=== PATIENT | female | born 1980 | race Hispanic/Latino ===

== ENCOUNTER 2024-10-17 19:17 | Emergency (ER) | payer MEDICAID ==
[~2024-10-17] VITALS: Ht 167.6 cm; Wt 113.4 kg
[2024-10-17 20:02] VITALS: BP 118/98; RESP 18; TEMP 97.7; O2SAT 95
--- NOTE | 2024-10-17 20:13 | ERN ---
ED Note History of Present Illness Stated Complaint: CP, CONGESTION Chief Complaint: Cough Time Seen by MD: 19:20 Dictation: Patient is a 44-year-old female coming in with cough congestion and wheezing she has had for 2-3 days. She states she has had clear runny nose, no fever no chills. States she has a history of asthma and used her albuterol inhaler1 hour ago. She also states she started taken azithromycin after a doing a tele health visit on Saturday and was prescribed azithromycin without a diagnosis. Allergies: Coded Allergies: Penicillins (Unverified Allergy, Unknown, 10/17/24) Past Medical History Past Medical History: Asthma Surgical History: None History: Not Applicable RN Note Reviewed/Agreed w/PFSH: Yes Review of System Dictation CONSTITUTIONAL: Negative except for HPI HEAD/FACE: Negative except for HPI EENT: Negative except for HPI RESPIRATORY: Negative except for HPI wheezing/cough GASTROINTESTINAL/ABDOMINAL: Negative except for HPI GENITOURINARY: Negative except for HPI MUSCULOSKELETAL: Negative except for HPI INTEGUMENTARY: Negative except for HPI NEUROLOGICAL/PSYCH: Negative except for HPI HEMATOLOGIC/LYMPHATIC: Negative except for HPI All Systems Negative, Except as noted above. 13 point review of systems assessed and all negative except for above. Initial Vital Sign VS Vital Signs Date Time Temp Pulse Resp B/P (MAP) Pulse Ox O2 Delivery O2 Flow Rate FiO2 10/17/24 19:20 97.7 90 20 132/86 98 Room Air 10/17/24 20:02 0 21 Physical Exam Dictation Vital Signs reviewed General Appearance: Alert, oriented x 3, mild acute distress, well developed, nourished. Obese Head and Face: non-traumatic. Eyes: PERRL, pink conjunctivas, eyelid no trauma, anterior chamber with arcus senilis. Ears: Pinnas intact and no signs of trauma or erythema ear canals clear and no discharge TM no erythema Nose: No discharge, no bleeding. Oropharynx: Mouth normal, tongue pink, pharynx clear,no erythema, tonsils no exudates, no abscesses noted, mucous membrane moist Neck: Supple, non-tender, no thyromegaly, no masses, no JVD, no bruits Breast:Deferred Chest:No tenderness, no crepitus, no paradoxical movement, no retractions Lungs:Clear, well-ventilated, symmetric, bilateral expiratory wheezes to lower lobes, no tachypnea no retractions Heart: Regular rate, regular rhythm, no murmur, no gallops Vascular: no peripheral edema, Abdomen: Soft, positive bowel sounds, nondistended, no guarding, nontender, no rebound, no masses no hepatomegaly, no splenomegaly, no Hill's sign, no hernias. Rectal: Deferred Genital: Deferred Neurological: Normal speech, motor function intact, sensory function intact Musculoskeletal: Neck nontender, full range of motion, back nontender, full range of motion, Extremities: nontender, full range of motion Skin: Color pink, dry, no turgor, no rash, no lacerations, no abrasions, no contusions. Lymphatic: Deferred Results (Laboratory/Radiology) Laboratory/Radiology Laboratory Tests Test 10/17/24 20:23 Influenza Type A Antigen Positive For Type A Influenza Type B Antigen Negative For Type B SARS-CoV-2 Antigen (Rapid) PRESUMPTIVE NEGATIVE Group A Streptococcus Rapid negative (NEGATIVE) Labs Reviewed?: Yes ED Course ED Course Orders Procedure Category Date Status Time Dexamethasone 4mg/Ml PHA 10/17/24 Complete 1ml Vial (Dexametha 20:30 Albuterol 0.083% PHA 10/17/24 Complete 2.5mg/3ml (Proventil 20:30 Rapid (Group A Strep) LAB 10/17/24 Complete 20:10 Covid19 (Sars Antigen LAB 10/17/24 Complete Rapid) 20:10 Influenza Type A & B, LAB 10/17/24 Complete Rapid 20:10 Current Medications Medications (Trade) Dose Ordered Sig/Chris Route PRN Reason Start Time Stop Time Status Last Admin Dose Admin Albuterol Sulfate (Proventil 0.083% 2.5mg/3ml) 5 mg ONCE ONCE IH 10/17/24 20:30 10/17/24 20:31 DC 10/17/24 20:51 Dexamethasone Sodium Phosphate (dexaMETHasone 4MG/ML 1ML VIAL) 8 mg ONCE ONCE IM 10/17/24 20:30 10/17/24 20:31 DC 10/17/24 20:31 Vital Signs Date Time Temp Pulse Resp B/P (MAP) Pulse Ox O2 Delivery O2 Flow Rate FiO2 10/17/24 20:51 88 10/17/24 20:02 97.7 91 18 118/98 95 Room Air* 0 21 10/17/24 19:20 97.7 90 20 132/86 98 Room Air 2128/BILATERAL BREATH SOUNDS IMPROVED WITH NO WHEEZING AFTER TREATMENT. PATIENT WILL BE DISCHARGED HOME WITH PREDNISONE 60 MG DAILY, TOLD TO CONTINUE HER BREATHING TREATMENTS AT HOME AND TAKE TAMIFLU DIRECTED UNTIL GONE. Medical Decision Making MDM MEDICAL DISCHARGE MAKING BASED ON SWABS FOR FLU COVID AND STREP. PATIENT WAS TREATED WITH ALBUTEROL ON DECADRON FOR EXPIRATORY WHEEZING BILATERAL BREATH SOUNDS IMPROVED AFTER TREATMENT. DISCHARGED HOME WITH DIAGNOSIS INFLUENZA A AND ASTHMA EXACERBATION WE WILL BE GIVEN [id number] MG B.I.D. FIVE DAYS, PREDNISONE 60 MG DAILY FOR FIVE DAYS SEE HER PRIMARY CARE DOCTOR DX & DISP Disposition: Discharge Departure Impression: Primary Impression: Influenza A Additional Impression: Acute asthma exacerbation Condition: Stable Scripts Benzonatate (Tessalon Perles) 100 Mg Cap 100 MG PO TID for cough, #30 CAP 0 Refills Prov: TINO COOPER ANGLESMITH 10/17/24 Prednisone (Prednisone) 20 Mg Tablet 1 TAB PO AD for 6 Days, #14 TAB 0 Refills TAKE 1 TAB BY MOUTH THREE TIMES PER DAY X3 DAYS, THEN TAKE 1 TAB BY MOUTH TWICE A DAY X2 DAYS, THEN TAKE 1 TAB BY MOUTH ONCE A DAY X1 DAY. Prov: TINO COOPER NP 10/17/24 Oseltamivir Phosphate (Tamiflu) 75 Mg Cap 75 MG PO BID for 5 Days, #10 CAP Prov: TINO COOPER ANGLESMITH 10/17/24 Additional Instructions: FOLLOW-UP WITH PRIMARY CARE PROVIDER IN 1 TO 2 DAYS. TAKE MEDICATIONS DIRECTED HERE IN THE EMERGENCY ROOM. OKAY TO CONTINUE HOME MEDICATIONS UNLESS OTHERWISE DISCUSSED DURING YOUR VISIT IN THE EMERGENCY ROOM TODAY. RETURN TO YOUR NEAREST EMERGENCY ROOM IF SYMPTOMS WORSEN OR IF THERE IS NO IMPROVEMENT. CALL 911 IF YOU NEED IMMEDIATE ASSISTANCE. TAKE TYLENOL OR MOTRIN [id number] NEEDED AND IF NO CONTRAINDICATIONS ARE PRESENT. INCREASE ORAL HYDRATION. A WOUND CULTURE OR URINE CULTURE WAS ORDERED HERE IN THE EMERGENCY ROOM DEPARTMENT PLEASE FOLLOW-UP WITH PRIMARY CARE PROVIDER AND ADVISE THEM TO GET REPEAT PORTS FROM OUR FACILITY. IF YOU HAD ANY GALINA WRAP/SPLINTS THAT WERE APPLIED HERE, PLEASE DO NOT REMOVE THEM UNTIL YOU SEE YOUR PRIMARY CARE OR SPECIALTY. TAKE TAMIFLU DIRECTED AND NO WORK UNTIL CLEARED BY YOUR PRIMARY CARE DOCTOR SATURDAY. USE YOUR ALBUTEROL I NEBULIZER EVERY4 HOURS WHILE AWAKE FOR THE NEXT THREE DAYS. TAKE PREDNISONE DIRECTED UNTIL GONE WITH FOOD. Referrals: OLMAN PERALTA MD (PCP) Time of Disposition: 21:29 I have reviewed the case, and I agree with, Diagnosis and Plan TINO COOPER NP Oct 17, 2024 20:13
[2024-10-17] MEDS: dexaMETHasone SOD PHOSPHATE 4 MG/ML 1ML VIAL IM ONE (20:31)
[2024-10-17 20:51] VITALS: PULSE 88
[2024-10-17] MEDS: ALBUTEROL 0.083% 2.5 MG/3 ML INH IH ONE (20:51)
[2024-10-17 20:54] LABS: RAPID GROUP A STREP negative (NEGATIVE)
[2024-10-17 21:01] LABS: INFLUENZA TYPE B Negative For Type B (NEGATIVE)
[2024-10-17 21:08] LABS: COVID19 (SARS ANTIGEN RAPID) PRESUMPTIVE NEGATIVE (NEGATIVE)
[2024-10-17 21:22] LABS: INFLUENZA TYPE A Positive For Type A (NEGATIVE)
[2024-10-17] MEDS ORDERED: PRED20TA3 PO (21:31)
[2024-10-17] MEDS ORDERED: OSEL75 PO (21:31)
[2024-10-17] MEDS ORDERED: BENZ-39 PO (21:31)
== END 2024-10-17 21:40 | disposition home or self-care (01) ==
LOC: EDH 19:17
DX: J10.1 Influenza due to other identified influenza virus with other respiratory manifestations (principal); J45.901 Unspecified asthma with (acute) exacerbation; Z20.822 Contact with and (suspected) exposure to COVID-19; Z88.0 Allergy status to penicillin
CPT/HCPCS: 99283; 87426; 87880; 87804 ×2; 96372; 94640; J1100

== ENCOUNTER 2025-03-20 14:42 | Emergency (ER) | payer MEDICAID ==
[~2025-03-20] VITALS: Ht 167.6 cm; Wt 112.0 kg
[~2025-03-20 14:42] MED LIST: BENZ-39 PO; OSEL75 PO; PRED20TA3 PO
--- NOTE | 2025-03-20 15:01 | ERN ---
General Chief Complaint: Knee Injury/Swelling Stated Complaint: LEFT KNEE Time Seen by MD: 14:47 Source: patient History of Present Illness Initial Comments PATIENT IS A 44-YEAR-OLD FEMALE COMING IN WITH LEFT KNEE DISCOMFORT. PER PATIENT SHE WAS WALKING AND SLIPPED IN THE WHOLE THIS CAUSE HER LEFT KNEE TO "POPPED OUT OF PLACE AND THEN POPPED BACK IN PLACE". Allergies: Coded Allergies: Penicillins (Unverified Allergy, Unknown, 10/17/24) Home Meds Active Scripts Naproxen (Naproxen) 500 Mg Tablet, 1 TAB PO BID for pain for 7 Days, #14 TAB 0 Refills Prov:GREGORY LUO MD 03/20/25 Benzonatate (Tessalon Perles) 100 Mg Cap, 100 MG PO TID for cough, #30 CAP 0 Refills Prov:TINO COOPER NP 10/17/24 Prednisone (Prednisone) 20 Mg Tablet, 1 TAB PO AD for 6 Days, #14 TAB 0 Refills TAKE 1 TAB BY MOUTH THREE TIMES PER DAY X3 DAYS, THEN TAKE 1 TAB BY MOUTH TWICE A DAY X2 DAYS, THEN TAKE 1 TAB BY MOUTH ONCE A DAY X1 DAY. Prov:TINO COOPER NP 10/17/24 Oseltamivir Phosphate (Tamiflu) 75 Mg Cap, 75 MG PO BID for 5 Days, #10 CAP Prov:TINO COOPER NP 10/17/24 Past Medical History Past Medical History: No Pertinent History Past Surgical History: None Female( History) History: Not Applicable ROS Dictation CONSTITUTIONAL: NO CHILLS, NO FEVER, NO WEAKNESS, NO DIAPHORESIS, NO MALAISE. HEAD/FACE: NO SIGNS OF TRAUMA. EENT: NO EYE PAIN, NO BLURRED VISION, NO TEARING, NO DOUBLE VISION, NO EAR PAIN, NO EAR DISCHARGE, NO NOSE PAIN, NO NASAL CONGESTION, NO THROAT PAIN, NO THROAT SWELLING, NO MOUTH PAIN. RESPIRATORY: NO COUGH, NO ORTHOPNEA, NO SOB, NO STRIDOR, NO WHEEZING. CARDIOVASCULAR: NO CHEST PAIN, NO EDEMA, NO PALPITATIONS, NO SYNCOPE. GASTROINTESTINAL/ABDOMINAL: NO ABDOMINAL PAIN, NO CONSTIPATION, NO DIARRHEA, NO NAUSEA, NO VOMITING. GENITOURINARY: NO ABNORMAL DISCHARGE, NO DYSURIA, NO FREQUENT URINATION, NO HEMATURIA. NO COMPLAINTS OF PAIN IN THE GENITALS. MUSCULOSKELETAL: NO BACK PAIN, NO GOUT, JOINT PAIN, NO JOINT SWELLING, MUSCLE PAIN, NO MUSCLE STIFFNESS, NO NECK PAIN. INTEGUMENTARY: NO CHANGE IN COLOR, NO CHANGE IN HAIR/NAILS, NO DRYNESS, NO LESION, NO LUMPS, NO RASH. NEUROLOGICAL/PSYCH: NO ANXIETY, NOT DEPRESSED, NO EMOTIONAL PROBLEM, NO HEADACHE, NO NUMBNESS, NO PRE-EXISTING DEFICIT, NO HISTORY OF SEIZURES, NO TREMORS, NO WEAKNESS. HEMATOLOGIC/LYMPHATIC: NOT ANEMIC, NO HISTORY OF BLOOD CLOTS, NO APPARENT BLEEDING, NO BRUISING, GLANDS NOT SWOLLEN. ALL SYSTEMS NEGATIVE, EXCEPT NOTED. Physical Exam Physical Exam Dictation VITAL SIGNS: REVIEWED. GENERAL APPEARANCE: ALERT, ORIENTED X3, NO ACUTE DISTRESS, OBESE. HEAD AND FACE: NON-TRAUMATIC. EYES: PERRL, PINK CONJUNCTIVAS, EYELID NO TRAUMA, ANTERIOR CHAMBER CLEAR. EARS: PINNAS INTACT AND NO SIGNS OF TRAUMA OR ERYTHEMA. EAR CANALS CLEAR AND NO DISCHARGE. TMS NO ERYTHEMA. NOSE: NO DISCHARGE, NO BLEEDING. OROPHARYNX: MOUTH NORMAL, TEETH NO CARIES, TONGUE PINK. PHARYNX CLEAR, NO ERYTHEMA. TONSILS NO EXUDATES, NO ABSCESSES NOTED. MUCOUS MEMBRANE MOIST. NECK: SUPPLE, NON-TENDER, NO THYROMEGALY, NO MASSES, NO JVD, NO BRUITS. BREAST: DEFERRED. CHEST: NO TENDERNESS, NO CREPITUS, NO PARADOXICAL MOVEMENT, NO RETRACTIONS. LUNGS: CLEAR, WELL-VENTILATED, SYMMETRIC, NO RALES, NO WHEEZING, NO RHONCHI, NO STRIDOR, GOOD BREATH SOUNDS BILATERALLY. HEART: REGULAR RATE, REGULAR RHYTHM, NO MURMUR, NO GALLOPS. VASCULAR: NO PERIPHERAL EDEMA. ABDOMEN: SOFT, POSITIVE BOWEL SOUNDS, NONDISTENDED, NO GUARDING, NONTENDER, NO REBOUND, NO MASSES NO HEPATOMEGALY, NO SPLENOMEGALY, NO NICHOLSON'S SIGN, NO HERNIAS. RECTAL: DEFERRED. GENITAL: DEFERRED. NEUROLOGICAL: NORMAL SPEECH, GROSS MOTOR FUNCTION INTACT, GROSS SENSORY FUNCTION INTACT. MUSCULOSKELETAL: NECK NONTENDER, FULL RANGE OF MOTION, BACK NONTENDER, FULL RANGE OF MOTION. EXTREMITIES: NONTENDER, FULL RANGE OF MOTION. SKIN: COLOR PINK, DRY, NO TURGOR, NO RASH, NO LACERATIONS, NO ABRASIONS, NO CONTUSIONS. LYMPHATICS: DEFERRED. Results EKG/XRAY/US/CT/MRI X-RAY Comment X-RAY KNEE-NAD MDM MDM: DIFFERENTIAL DIAGNOSIS: KNEE STRAIN, PATELLAR DISLOCATION, RATIONALE: TESTS CONSIDERED AND ORDERED SECONDARY TO SHARED DECISION MAKING INCLUDE: PREVIOUS OUTSIDE RECORDS REVIEWED: OLD ER VISITS. RISK OF COMPLICATION AND/OR MORBIDITY OR MORTALITY OF PATIENT MANAGEMENT: NONE PATIENT IS A 44-YEAR-OLD FEMALE COMING IN TO BE EVALUATED FOR KNEE PAIN. ON PHYSICAL EXAM THERE IS TENDERNESS TO THE LEFT KNEE ON PALPATION X-RAY DID NOT DISCLOSE ACUTE FINDINGS. KNEE IMMOBILIZER WAS PLACED I DID ADVISED HIM APPROPRIATE FOLLOW UP WITH IN ONE DAYS. I ALSO ADVISED HER USING A RICE TECHNIQUE TO HELP WITH LIGAMENT STRAIN. The RICE method (Rest, Ice, Compression, Elevation) is a widely used first-aid approach for treating minor soft tissue injuries, like sprains, strains, and bruises. It helps reduce swelling, pain, and speed up healing. Here's a breakdown of the RICE method: ED Course Orders Procedure Category Date Status Time Knee 3vws Lt RAD 03/20/25 Resulted 14:53 Ketorolac PHA 03/20/25 In Process Tromethamine 30mg/Ml 16:30 Orphenadrine Citrate PHA 03/20/25 In Process (Norflex) 16:30 Current Medications Medications (Trade) Dose Ordered Sig/Chris Route PRN Reason Start Time Stop Time Status Last Admin Dose Admin Ketorolac Tromethamine (toRADol) 30 mg ONCE ONCE IM 03/20/25 16:30 03/20/25 16:31 Orphenadrine Citrate (Norflex) 60 mg ONCE ONCE IM 03/20/25 16:30 03/20/25 16:31 Vital Signs Date Time Temp Pulse Resp B/P (MAP) Pulse Ox O2 Delivery O2 Flow Rate FiO2 03/20/25 16:04 98.8 74 18 141/98 98 Room Air* 0 21 03/20/25 14:52 98.2 85 16 131/83 98 Room Air* 0 21 03/20/25 14:48 98.2 85 16 131/83 98 Room Air 0 DX & DISP Disposition: Discharge Departure Impression: Primary Impression: Knee strain Condition: Stable Scripts Naproxen (Naproxen) 500 Mg Tablet 1 TAB PO BID for pain for 7 Days, #14 TAB 0 Refills Prov: GREGORY LUO MD 03/20/25 Additional Instructions: FOLLOW-UP WITH PRIMARY CARE PROVIDER IN 1 TO 2 DAYS. TAKE MEDICATIONS DIRECTED HERE IN THE EMERGENCY ROOM. OKAY TO CONTINUE HOME MEDICATIONS UNLESS OTHERWISE DISCUSSED DURING YOUR VISIT IN THE EMERGENCY ROOM TODAY. RETURN TO YOUR NEAREST EMERGENCY ROOM IF SYMPTOMS WORSEN OR IF THERE IS NO IMPROVEMENT. CALL 911 IF YOU NEED IMMEDIATE ASSISTANCE. TAKE TYLENOL [id number] NEEDED AND IF NO CONTRAINDICATIONS ARE PRESENT. INCREASE ORAL HYDRATION. A WOUND CULTURE OR URINE CULTURE WAS ORDERED HERE IN THE EMERGENCY ROOM DEPARTMENT PLEASE FOLLOW-UP WITH PRIMARY CARE PROVIDER AND ADVISE THEM TO GET REPORTS FROM OUR FACILITY. IF YOU HAD ANY GALINA WRAP/SPLINTS THAT WERE APPLIED HERE, PLEASE DO NOT REMOVE THEM UNTIL YOU SEE YOUR PRIMARY CARE OR SPECIALTY. REFERRALS: Referrals: OLMAN PERALTA MD (PCP) Time of Disposition: 16:05 GREGORY LUO MD Mar 20, 2025 15:01
[2025-03-20 16:04] VITALS: BP 141/98; PULSE 74; RESP 18; TEMP 98.8; O2SAT 98
[2025-03-20] MEDS ORDERED: NAPR-1194 PO (16:07)
--- NOTE | 2025-03-20 16:12 | HMCIMG ---
KNEE 3VWS LT HISTORY: Pain COMPARISON: None TECHNIQUE: 3 images of the left knee were obtained. FINDINGS: There is no acute displaced fracture or dislocation. Degenerative changes are seen. IMPRESSION: 1. Findings as described above.
[2025-03-20] MEDS: ketOROlac 30MG VIAL (30MG/ML) IM ONE (16:30)
[2025-03-20] MEDS: ORPHENADRINE 60MG/2ML IM ONE (16:31)
--- NOTE | 2025-03-20 16:40 | NUR ---
DC PATIENT WAS DC'D BY DR Sheila LUO TODAY I EXPLAINED TO PATIENT TO FOLLOW UP WITH PCP, TAKE NEW PRESCRIPTIONS DIRECTED, AND PROVIDED INFO BASED ON DIAGNOSIS I ANSWERED ANY FURTHER QUESTIONS FROM PATIENT PATIENT WAS WHEELCHAIRED OUT BY ROTATING FIELD ASSEMBLER OUT OF ED, NO COMPLICATIONS
== END 2025-03-20 16:37 | disposition home or self-care (01) ==
LOC: EDH 14:42
DX: S86.912A Strain of unspecified muscle(s) and tendon(s) at lower leg level, left leg, initial encounter (principal); Z88.0 Allergy status to penicillin; Z79.899 Other long term (current) drug therapy; W01.0XXA Fall on same level from slipping, tripping and stumbling without subsequent striking against object, initial encounter; Y93.01 Activity, walking, marching and hiking; Y92.89 Other specified places as the place of occurrence of the external cause; Y99.8 Other external cause status
CPT/HCPCS: 99284; 29505; 73562; 96372 ×2; J1885; J2360